=== PATIENT | male | born 1995 | race Caucasian/White ===

== ENCOUNTER 2016-11-02 09:07 | Emergency (ER) | payer BC ==
[~2016-11-02] VITALS: Ht 175.3 cm; Wt 72.7 kg
[2016-11-02 09:11] VITALS: BP 114/75; PULSE 72; TEMP 97.9
== END 2016-11-02 10:50 | disposition home or self-care (01) ==
LOC: COL.ER 09:07
DX: S99.922A Unspecified injury of left foot, initial encounter (principal); V91.39XA Hit or struck by falling object due to accident to unspecified watercraft, initial encounter

== ENCOUNTER → 2016-11-26 | Outpatient (CLI) | payer BC | LOC: ZCOL.LAB 23:07 | DX: Z01.89 Encounter for other specified special examinations (principal) ==

== ENCOUNTER 2020-05-01 09:53 | Inpatient (IN) | payer BC ==
[~2020-05-01] VITALS: Ht 175.3 cm; Wt 70.5 kg
[2020-05-01 10:35] LABS: HEMATOCRIT 41.3 % (42.0-52.0); HEMOGLOBIN 14.6 g/dl (13.5-18.0); MEAN CELL VOLUME 86 fl (80.0-100.0); MEAN CORPUSCULAR HEMOGLOBIN 31 pg (27.0-31.0); MEAN CORPUSCULAR HGB CONC 35 g/dl (33.0-37.0); MEAN PLATELET VOLUME 9.6 fl (7.4-10.4); PLATELET COUNT 359 K/mm3 (130-400); RED BLOOD COUNT 4.79 M/mm3 (4.20-5.60); REDCELL DISTRIBUTION WIDTH-CV 12.1 % (11.5-14.5)
[2020-05-01 10:48] LABS: ALBUMIN 4.5 gm/dL (3.5-5.0); BILIRUBIN,TOTAL 0.9 mg/dL (0.0-1.0); CREATININE, serum 1.04 (0.66-1.25); POTASSIUM 3.6 mmol/L (3.4-5.0)
[2020-05-01 11:00] LABS: EOSINOPHIL 1 % (0-4); LYMPHOCYTE 7 % (20.0-51.0); NEUTROPHILS 90 % (42.0-75.2); PLATELET ESTIMATE NORMAL (NORMAL)
[2020-05-01 11:53] LABS: C-REACTIVE PROTEIN 43.7 mg/dL (0.0-0.9)
[2020-05-01 11:54] LABS: TOTAL PROTEIN 8.6 gm/dL (6.4-8.2)
--- NOTE | 2020-05-01 15:42 | NUR ---
The patient is a PUI. [facility] contacted the patient via cell phone to complete intake. The patient lives independently in [place]. The patient denies DME use. The patient's PCP is Dr. Joy. The patient does not have advanced directives and is not . His mother, Shelbi lives in [place]. The patient plans to return home at discharge with Shelbi providing transport. SW contacted Shelbi, she was in agreeance with the discharge plan.
[2020-05-01 16:17] VITALS: PULSE 99; TEMP 98.6
[2020-05-01 16:54] VITALS: BP 110/80
--- NOTE | 2020-05-01 17:05 | NUR ---
pt in room, reports soa and dyspnea with activity, assessment performed, medications given, fluids hanging, water brought in, pt has very good oral intake, educated him on self ordering menu, call light, room phone, bathroom. gave him urinal to use if feeling too sob for activity. bed in low position, pt belongings were dropped off in ed and brought into room, pt on ra at this time. no other needs
[2020-05-01 19:02] VITALS: BP 110/70; PULSE 95; TEMP 98.7
--- NOTE | 2020-05-01 19:12 | NUR ---
CRITICAL D-DIMER OF 647 CALLED TO [facility]. NO NEW ORDERS.
--- NOTE | 2020-05-01 22:40 | NUR ---
AT 2150 PATIENTS O2 WAS 88% ON ROOM AIR. WORKED WITH PATIENT ON BREATHING EXERCISES TO TRY TO RAISE HIS O2 LEVEL. O2 STAYED BETWEEN 88-89%. 2L VIA NC APPLIED. O2 AT 92%.
[2020-05-02] VITALS (8 sets, daily range): BP systolic 100–118; BP diastolic 55–68; PULSE 66–102; TEMP 97.8–98.9
--- NOTE | 2020-05-02 07:00 | NUR ---
Report received from [facility]man. pT in bed resting, cindy colbert, will continue to monitor.
--- NOTE | 2020-05-02 10:27 | NUR ---
Assessment charted. PT states he feels much better today than yesterday. Was suffering from exaustion yesterday and was able to get 3-4 hours of sleep overnight and eat a small amount and is feeling much better now. Does get SOB when up to bathroom but at rest does not feel dyspneac. INT RA/C. Reveiwed lab resutls and encouraged to have family on phone and tc kessler for updates. Denies pain. Will continue to monitor.
[2020-05-02 12:32] LABS: CALCIUM 8.9 mg/dL (8.4-10.2); CREATININE, serum 0.82 (0.66-1.25); POTASSIUM 3.4 mmol/L (3.4-5.0)
[2020-05-02 13:05] LABS: BASO % 0.2 % (0.0-2.0); EOS % 0.2 % (0-4.0); GRAN # 7.5 (1.4-6.5); GRAN % 89.8 % (42.2-75.2); HEMATOCRIT 37.8 % (42.0-52.0); HEMOGLOBIN 12.7 g/dl (13.5-18.0); LYMPH # 0.5 (1.2-3.4); MEAN CORPUSCULAR HEMOGLOBIN 31 pg (27.0-31.0); MEAN CORPUSCULAR HGB CONC 34 g/dl (33.0-37.0); MEAN PLATELET VOLUME 9.7 fl (7.4-10.4); MONO # 0.2 (0.1-0.6); MONO % 2.8 % (1.7-9.3); PLATELET COUNT 300 K/mm3 (130-400); RED BLOOD COUNT 4.17 M/mm3 (4.20-5.60); REDCELL DISTRIBUTION WIDTH-CV 12.5 % (11.5-14.5)
[2020-05-02 13:07] LABS: MEAN CELL VOLUME 91 fl (80.0-100.0)
--- NOTE | 2020-05-02 14:41 | NUR ---
Pt checked own 02 levels after ambulating back to bed from bathroom- levels were are 85% on RA. Wearing 02 when ambulating. Agreeable to plan, will continue to monitor.
--- NOTE | 2020-05-02 17:55 | NUR ---
Pt resting in bed, able to wear 02 whenever up ad deanna to bathroom. Discussed plan of care and educated on use of sputum cup. Resting in bed, sleeping this afternoon and denies pain. Will give report to nightshift nurse who will resume care.
--- NOTE | 2020-05-02 18:16 | NUR ---
Called mother and updated with lab results and plan of care.
--- NOTE | 2020-05-02 21:00 | NUR ---
Patient assessed at this time. Alert and oriented x 4, and able to make needs known. Denies having pain and discomfort at this time. Peripheral INT to right AC flushed. Site without redness, warmth, swelling, and pain. Denies having SOB and dyspnea at rest, but does with exertion. LS CTA in upper lobes, diminished in lower. Respirations labored with exertion. Patient wears oxygen with exertion. Patient has not been wearing in with each time he goes to the bathroom, but reports he gets very short of breath and sweaty. Told patient to keep oxygen on at all times for the night. Voiced understanding. HRR. Telemetry in place. Capillary refill less than 3 seconds. Non-tenting skin turgor. BSAx4. Abdomen soft and non-tender. Does report frequent diarrhea. No edema. Voices no questions, needs, or concerns at this time. Resting in bed with call light within reach.
[2020-05-03 04:26] VITALS: BP 120/80; PULSE 73; TEMP 97.9
[2020-05-03 05:48] LABS: BASO % 0.1 % (0.0-2.0); GRAN # 9.6 (1.4-6.5); GRAN % 90.6 % (42.2-75.2); HEMOGLOBIN 13.7 g/dl (13.5-18.0); LYMPH # 0.5 (1.2-3.4); LYMPH % 4.5 % (20.0-51.0); MEAN CELL VOLUME 91 fl (80.0-100.0); MEAN CORPUSCULAR HEMOGLOBIN 30 pg (27.0-31.0); MEAN CORPUSCULAR HGB CONC 33 g/dl (33.0-37.0); MEAN PLATELET VOLUME 9.8 fl (7.4-10.4); MONO # 0.4 (0.1-0.6); MONO % 3.5 % (1.7-9.3); PLATELET COUNT 385 K/mm3 (130-400); RED BLOOD COUNT 4.51 M/mm3 (4.20-5.60); REDCELL DISTRIBUTION WIDTH-CV 12.5 % (11.5-14.5)
[2020-05-03 05:57] LABS: CALCIUM 9.9 mg/dL (8.4-10.2); CREATININE, serum 0.72 (0.66-1.25)
--- NOTE | 2020-05-03 06:00 | NUR ---
Patient has been wearing oxygen on and off this shift. Agreeable to wear it during and after activity to help with dyspnea on exertion. Denies having pain and discomfort. Voices no questions, needs, or concerns at this time. Resting in bed with call light within reach.
--- NOTE | 2020-05-03 07:00 | NUR ---
Report received from IN[facility] Page. PT in bed resting, denies needs, will continue to monitor.
[2020-05-03 08:04] VITALS: BP 120/84; PULSE 68; TEMP 97.3
--- NOTE | 2020-05-03 08:30 | NUR ---
Assessment charted. States he did not get much rest overnight and was coughing often. On 02 at 4LNC mostly for ambulation. Denies pain. Drinking ice water well. Lungs have crackles at bases. REsting between disturbances and wonders what the plan will be for today. Will continue to monitor. INT to R A/C. Will continue to monitor.
[2020-05-03 12:31] VITALS: BP 118/84; PULSE 85; TEMP 98.5
--- NOTE | 2020-05-03 14:01 | NUR ---
Called pts family per request. UPdate provided, and called [facility] and updated and calling lab now to do discoovery on COVID serology testing.
[2020-05-03 16:28] VITALS: BP 116/78; PULSE 63; TEMP 98.1
--- NOTE | 2020-05-03 18:20 | NUR ---
Pt resting in bed, on RA. Denies any needs at this time. Call light within reach.
[2020-05-03 20:20] VITALS: BP 116/68; PULSE 66; TEMP 98.2
[2020-05-04 00:21] VITALS: BP 115/70; PULSE 68; TEMP 98
[2020-05-04 04:21] VITALS: BP 117/78; PULSE 71; TEMP 98.6
[2020-05-04 06:59] LABS: HEMATOCRIT 39.6 % (42.0-52.0); HEMOGLOBIN 12.9 g/dl (13.5-18.0); MEAN CELL VOLUME 92 fl (80.0-100.0); MEAN CORPUSCULAR HEMOGLOBIN 30 pg (27.0-31.0); MEAN CORPUSCULAR HGB CONC 33 g/dl (33.0-37.0); PLATELET COUNT 451 K/mm3 (130-400); RED BLOOD COUNT 4.29 M/mm3 (4.20-5.60); REDCELL DISTRIBUTION WIDTH-CV 12.6 % (11.5-14.5)
[2020-05-04 07:09] LABS: CALCIUM 9.4 mg/dL (8.4-10.2); CREATININE, serum 0.68 (0.66-1.25)
[2020-05-04 07:42] VITALS: BP 124/73; PULSE 60; TEMP 98.1
--- NOTE | 2020-05-04 08:03 | NUR ---
Pt assessment complete. Pt is sitting up in bed watching tv, he is A/O x4. His breathing is even and unlabored on RA. Pt denies SOB at this time, states he did get up without O2 felt weak but not SOB at the time. Reports he wore O2 at about 4 am d/t "moving around a lot" and started feeling weak and somewhat SOB. No pain at this time. Reports some nausea with "deep breaths". Continues to have loose stools. No needs at this time. Call light within reach.
[2020-05-04 08:13] LABS: BAND 1 % (0-10); LYMPHOCYTE 5 % (20.0-51.0); NEUTROPHILS 92 % (42.0-75.2)
[2020-05-04 08:14] LABS: PLATELET ESTIMATE NORMAL (NORMAL)
[2020-05-04 11:19] VITALS: BP 133/71; PULSE 62; TEMP 98.1
[2020-05-04] MEDS ORDERED: OXYGEN (12:50)
[2020-05-04] MEDS ORDERED: OMNICEF 300MG300 MG PO (12:52)
[2020-05-04] MEDS ORDERED: DECADRON6 MG PO (12:52)
[2020-05-04] MEDS ORDERED: DOXYCYCLINE 10100 MG PO (12:53)
[2020-05-04] MEDS ORDERED: PROAIR HFA0.09 MG/AC IH (12:53)
[2020-05-04] MEDS ORDERED: ROBITUSSIN100 MG/5 M PO (12:54)
--- NOTE | 2020-05-04 13:02 | NUR ---
Patient is discharging home today 05/04 and requires home oxygen. SW sent orders to [facility] and made contact with personnel. [facility] will bring portable and set up tmo. There are no new needs at this time.
--- NOTE | 2020-05-04 14:08 | NUR ---
Discharge instructions and paperwork reviewed with patient. All questions answered at this time. IV to RAC dc'd. Oxygen delivered and at the patient's bedside. Awaiting ride at this time.
--- NOTE | 2020-05-04 15:34 | NUR ---
Pt wheeled out of the facility at this time.
== END 2020-05-04 15:34 | disposition home or self-care (01) | DRG 193 ==
LOC: COL.ER 09:53 → MEDICAL 13:19
PROVIDERS: Nurse Practitioner; ADMIT Student in an Organized Health Care Education/Training Program
DX: J18.9 Pneumonia, unspecified organism (principal); J96.01 Acute respiratory failure with hypoxia; E83.52 Hypercalcemia; Z20.822 Contact with and (suspected) exposure to COVID-19
CPT/HCPCS: 99232-AI; 99239; G0378; J0456; J0696; J1650; J7030; J7050; J8540; Q9967

== ENCOUNTER 2022-05-26 16:34 | Emergency (ER) | payer BC ==
[~2022-05-26 16:34] MED LIST: DECADRON6 MG PO; DOXYCYCLINE 10100 MG PO; OMNICEF 300MG300 MG PO; OXYGEN; PROAIR HFA0.09 MG/AC IH; ROBITUSSIN100 MG/5 M PO
[2022-05-26 17:25] LABS: BASO # 0.1 K/mm3 (0.0-0.2); BASO % 0.6 % (0.0-2.0); EOS % 0.4 % (0.0-4.0); GRAN # 5.8 K/mm3 (1.4-6.5); GRAN % 61.1 % (42.2-75.2); HEMOGLOBIN 17.5 g/dl (13.5-18.0); LYMPH % 31.5 % (20.0-51.0); MEAN CELL VOLUME 85 fl (80.0-100.0); MEAN CORPUSCULAR HEMOGLOBIN 32 pg (27-31); MEAN CORPUSCULAR HGB CONC 37 g/dl (33.0-37.0); MEAN PLATELET VOLUME 9.3 fl (7.4-10.4); MONO # 0.6 K/mm3 (0.1-0.6); PLATELET COUNT 217 K/mm3 (130-400); RED BLOOD COUNT 5.53 M/mm3 (4.20-5.60); REDCELL DISTRIBUTION WIDTH-CV 11.7 % (11.5-14.5)
[2022-05-26 17:42] LABS: ALANINE AMINOTRANSFERASE 26 U/L (0-55); ALBUMIN 4.9 gm/dL (3.5-5.0); ALCOHOL(ethanol),MEDICAL 268 mg/dL (0-10); ALKALINE PHOSPHATASE 70 U/L (40-150); ANION GAP 16 mmol/L (7-16); AST,SGOT 31 U/L (5-34); BILIRUBIN,TOTAL 0.7 mg/dL (0.2-1.2); BLOOD UREA NITROGEN 12 mg/dL (9-21); CALCIUM 9.5 mg/dL (8.4-10.2); CARBON DIOXIDE 22 mmol/L (22-29); CHLORIDE 106 mmol/L (98-107); CREATININE, serum 1.17 mg/dL (0.72-1.25); GLUCOSE 91 mg/dL (70-99); SODIUM 144 mmol/L (136-145); TOTAL PROTEIN 8.4 gm/dL (6.2-8.1)
[2022-05-26 17:43] LABS: ACETAMINOPHEN < 1.0 ug/mL (10-30); SALICYLATE < 5.0 mg/dL (15.0-30.0)
[2022-05-26 17:48] LABS: COLLECTION METHOD CLEAN CATCH
[2022-05-26 18:02] LABS: MUCOUS Present (NOT PRESENT); SQUAMOUS EPITHELIAL None Seen /hpf (0-10); URINE BACTERIA None Seen /hpf (NONE SEEN); URINE RBC None Seen /hpf (0-2)
[2022-05-26] MEDS ORDERED: CELEXA 20MG20 MG/TAB PO (18:02)
[2022-05-26] MEDS ORDERED: ATARAX 25MG25 MG/TAB PO (18:02)
[2022-05-26 18:07] LABS: PH 5.5 (5-8); URINE APPEARANCE Hazy (CLEAR/HAZY); URINE BLOOD TRACE-INTACT (NEGATIVE); URINE COLOR Yellow (YELLOW); URINE GLUCOSE Negative (NEGATIVE); URINE KETONE TRACE (NEGATIVE); URINE NITRATE Negative (NEGATIVE); URINE PROTEIN(semi-quant) 2+ (NEGATIVE); URINE UROBILINOGEN 0.2 (NEGATIVE)
[2022-05-26 18:12] LABS: TRICYCLIC ANTIDEPRESS URINE NEGATIVE
[2022-05-27 06:53] VITALS: BP 128/81; PULSE 85; TEMP 98
== END 2022-05-27 06:58 | disposition home or self-care (01) ==
LOC: COL.ER 16:34
PROVIDERS: Nurse Practitioner
DX: F10.129 Alcohol abuse with intoxication, unspecified (principal); F41.9 Anxiety disorder, unspecified; Y90.8 Blood alcohol level of 240 mg/100 ml or more; Z79.899 Other long term (current) drug therapy; Z28.310 Unvaccinated for COVID-19